=== PATIENT | male | born 1950 | race Hispanic/Latino ===

== ENCOUNTER → 2017-11-03 | Outpatient (CLI) | payer MEDICARE ==
[~2017-11-03] MED LIST: AEC81 PO; AMIO100T4 PO; BUDE10.22 IH; CEPH500T PO; METO25TA6 PO; SODI650T PO
== END | disposition home or self-care (01) ==
LOC: SHCH 11:45
PROVIDERS: ATTEND Internal Medicine Cardiovascular Disease
DX: I35.8 Other nonrheumatic aortic valve disorders (principal); I12.0 Hypertensive chronic kidney disease with stage 5 chronic kidney disease or end stage renal disease; E11.22 Type 2 diabetes mellitus with diabetic chronic kidney disease; N18.6 End stage renal disease
CPT/HCPCS: 93306

== ENCOUNTER → 2017-12-25 | Outpatient (CLI) | payer OTHER | END | disposition home or self-care (01) | LOC: OIH 14:51 | PROVIDERS: ATTEND Internal Medicine Cardiovascular Disease | DX: Z13.6 Encounter for screening for cardiovascular disorders (principal) | CPT/HCPCS: 75571 ==

== ENCOUNTER → 2019-11-25 | Outpatient (CLI) | payer MEDICARE | END | disposition home or self-care (01) | LOC: RAH 10:48 | PROVIDERS: ATTEND Internal Medicine Cardiovascular Disease | DX: R22.9 Localized swelling, mass and lump, unspecified (principal) | CPT/HCPCS: 71250 ==

== ENCOUNTER → 2020-10-24 | Outpatient (CLI) | payer MEDICARE | END | disposition home or self-care (01) | LOC: SHCH 07:48 | PROVIDERS: ATTEND Internal Medicine Cardiovascular Disease | DX: I65.23 Occlusion and stenosis of bilateral carotid arteries (principal); I71.4 Abdominal aortic aneurysm, without rupture; R09.89 Other specified symptoms and signs involving the circulatory and respiratory systems | CPT/HCPCS: 93880; 93978 ==

== ENCOUNTER → 2022-08-06 | Outpatient (CLI) | payer MEDICARE ==
[~2022-08-06] MED LIST changes: -AMIO100T4 PO; +AMIO200T68 PO; -BUDE10.22 IH; -CEPH500T PO; +CLOP75TA32 PO; +HYDR12.54 PO; -METO25TA6 PO; +METO50TA18 PO; +ROSU5TAB12 PO
== END | disposition home or self-care (01) ==
LOC: SHCH 08:55
PROVIDERS: ATTEND Internal Medicine Cardiovascular Disease
DX: I65.23 Occlusion and stenosis of bilateral carotid arteries (principal)
CPT/HCPCS: 93880

== ENCOUNTER → 2024-09-11 | Outpatient (CLI) | payer MEDICARE ==
[~2024-09-11] MED LIST changes: -ROSU5TAB12 PO; +ROSU5TAB51 PO
--- NOTE | 2024-09-15 11:21 | HMCSR ---
APPROVED REPORT EXAM: Two-dimensional and M-mode echocardiogram with Doppler and color Doppler. INDICATION ICD: I48.0 Atrial Fibrillation 2D Dimensions RVDd3.4 cmLVEF(%)54.6 (>50%)LVED Vol(simp.)127.0 mL IVSd1.1 (0.7-1.1cm)FS(%)28 %LVES Vol(simp.)60.0 mL LVDd4.8 (3.8-5.6cm)Ao Root(2D)3.5 (2.0-3.7cm)LVEF(%, simp.)53 % PWd1.1 (0.7-1.1cm)LVOT diam2.3 (1.8-2.4cm)LA ESV INDEX (BP)44.05 mL/m2 LVDs3.5 (2.5-4.0cm)IVC diam1.6 cm Aortic Valve AoV Vmax1.2 m/Joan Peak GR5.8 mmHgLVOT Vmax0.8 m/s AoV VTI0.3 mAo Mean GR3.0 mmHgLVOT VTI0.22 m SERA (VMAX)3.1 cm2Al P1/2T871 msAVA (VTI) 3.1 cm2 Mitral Valve MV E Vmax53.5 cm/sDECEL Prca920 ms MV A Vmax71.0 cm/sP 1/2 T93 ms E/A ratio0.8MVA (PHT)2.4 cm2 MR Max PG177 mmHg TDI E/E' Medial8.3E/E' Lateral6.2 Pulmonary Valve PV Vmax1.4 m/sPV VTI0.33 mPV Mean GR4 mmHg PV Peak GR7.9 mmHg Tricuspid Valve TR Vmax2.5 m/sRAP (EST) 3 gaGsRTUB12.0 mmHg TR Peak GR26.0 mmHg Left Ventricle Left ventricular cavity size is normal. There is borderline to mild concentric left ventricular hyper trophy. LVEF is 55%. No left ventricle thrombus noted on this study. Grade 1 diastolic dysfunction Right Ventricle The right ventricle is normal size. The right ventricular systolic function is normal. Atria The left atrium is moderately dilated. The right atrium is mildly dilated. Aortic Valve Aortic valve is trileaflet. Aortic valve leaflets are sclerotic but open well. Trace to mild aortic r egurgitation. There is no aortic valvular stenosis. Mitral Valve The mitral valve is mildly thickened. Mitral regurgitation is mild. There is no mitral valve stenosis . Tricuspid Valve The tricuspid valve leaflets appear normal. There is trace to mild tricuspid regurgitation. Pulmonic Valve The pulmonic valve leaflets are thin and pliable; valve motion is normal. There is trace pulmonic vicki vular regurgitation. Great Vessels The aortic root is normal in size. The IVC is normal in size and collapses >50% with inspiration. Pericardium No pericardial effusion. Conclusion Left ventricular cavity size is normal. There is borderline to mild concentric left ventricular hypertrophy. LVEF is 55%. Grade 1 diastolic dysfunction The right ventricle is normal size. The left atrium is moderately dilated. The right atrium is mildly dilated. Aortic valve is trileaflet. Aortic valve leaflets are sclerotic but open well. Trace to mild aortic regurgitation. The mitral valve is mildly thickened. Mitral regurgitation is mild. There is no mitral valve stenosis. There is trace to mild tricuspid regurgitation. There is trace pulmonic valvular regurgitation. The aortic root is normal in size. The IVC is normal in size and collapses >50% with inspiration. No pericardial effusion.
--- NOTE | 2024-09-15 11:26 | HMCSR ---
APPROVED REPORT Laterality: Bilateral Indications i65.21 Surgery/Intervention Endarterectomy: right Doppler Spectral Velocity Analysis PSV / EDVPSV / EDV ECA (R) 122 / cm/sECA (L) 79 / cm/s dICA (R) 76 / 24 cm/sdICA (L) 60 / 18 cm/s Joanne (R) 69 / 22 cm/smICA (L) 58 / 19 cm/s pICA (R) 61 / 16 cm/spICA (L) 68 / 19 cm/s dCCA (R) 75 / 19 cm/sdCCA (L) 68 / 16 cm/s mCCA (R) 66 / 17 cm/smCCA (L) 61 / 13 cm/s pCCA (R) 84 / 21 cm/spCCA (L) 76 / 19 cm/s Vert (R) 37 / cm/sVert (L) 57 / cm/s Subl. (R) 219 / cm/sSubl. (L) 142 / cm/s ICA/CCA 0.90ICA/CCA 0.89 Technologist Impression Minimal intimal thickening plaque noted in the bilateral carotids, without hemodynamic significance. Bilateral vertebral arteries appear antegrade. Conclusion Minimal intimal thickening plaque noted in the bilateral carotids, without hemodynamic significance. Bilateral vertebral arteries appear antegrade. Conclusion Minimal intimal thickening plaque noted in the bilateral carotids, without hemodynamic significance. Bilateral vertebral arteries appear antegrade.
== END | disposition home or self-care (01) ==
LOC: SHCH 08:26
PROVIDERS: ATTEND Internal Medicine Cardiovascular Disease
DX: I08.3 Combined rheumatic disorders of mitral, aortic and tricuspid valves (principal); I65.21 Occlusion and stenosis of right carotid artery; I48.0 Paroxysmal atrial fibrillation
CPT/HCPCS: 93306; 93880